=== PATIENT | male | born 1975 | race Asian ===

== ENCOUNTER 2019-02-23 09:47 | Day surgery (SDC) | payer OTHER ==
[2019-02-23] MEDS: CEFAZOLIN 2 GM/50 ML (PMX) 50 ML IVPB (07:00)
[~2019-02-23 09:47] MED LIST: DEXAMETHASONE 4 MG/ML 5 ML INJ; ONDANSETRON 4 MG INJ
[2019-02-23 11:15] LABS: ADD MAN DIFF? NO
[2019-02-23 11:17] LABS: WHITE BLOOD COUNT 4.4 10^3/ul (4.8-10.8)
[2019-02-23 11:17] LABS: BASOPHILS % 0.7 % (0.0-2.0); EOSINOPHILS # 0.2 10^3/ul (0.0-0.5); EOSINOPHILS % 3.7 % (0.0-7.0); HEMATOCRIT 43.9 % (42.0-52.0); HEMOGLOBIN 14.8 g/dl (14.0-18.0); LYMPHOCYTES # 1.4 10^3/ul (0.8-2.9); LYMPHOCYTES % 32.2 % (15.0-51.0); MEAN CORPUSCULAR HEMOGLOBIN 29.7 pg (29.0-33.0); MEAN CORPUSCULAR HGB CONC 33.7 g/dl (32.0-37.0); MEAN PLATELET VOLUME 9.5 fl (7.4-10.4); MONOCYTE # 0.4 10^3/ul (0.3-0.9); MONOCYTES % 8.3 % (0.0-11.0); NEUTROPHIL # 2.4 10^3/ul (1.6-7.5); NEUTROPHILS % 54.9 % (39.0-77.0); PLATELET COUNT 217 10^3/UL (140-415); RED BLOOD COUNT 4.99 10^6/ul (4.70-6.10); RED CELL DISTRIBUTION WIDTH 12.9 % (11.5-14.5)
[2019-02-23] MEDS: SOD CHLORIDE 0.9% 1,000 ML IV (11:18)
[2019-02-23 11:38] LABS: HOLD TRANSMISSIONS 1
[2019-02-23 11:40] LABS: ALANINE AMINOTRANSFERASE 22 IU/L (13-69); ALBUMIN 4.4 g/dl (3.3-4.9); ALKALINE PHOSPHATASE 66 IU/L (42-121); ANION GAP 6 (5-13); ASPARTATE AMINO TRANSFERASE 22 IU/L (15-46); BILIRUBIN,INDIRECT 0.5 mg/dl (0-1.1); BILIRUBIN,TOTAL 0.5 mg/dl (0.2-1.3); BLOOD UREA NITROGEN 18 mg/dl (7-20); CALCIUM 9.5 mg/dl (8.4-10.2); CARBON DIOXIDE 32 mmol/L (21-31); CHLORIDE 103 mmol/L (97-110); CREATININE 0.89 mg/dl (0.61-1.24); Estimated GFR > 60 mL/min (>60); GLUCOSE 89 mg/dl (70-220); POTASSIUM 4.2 mmol/L (3.5-5.1); SODIUM 141 mmol/L (135-144); TOTAL PROTEIN 8.4 g/dl (6.1-8.1)
[2019-02-23 11:49] LABS: INR 0.94; PROTIME 12.7 Sec (11.9-14.9)
[2019-02-23 11:50] LABS: PARTIAL THROMBOPLASTIN TIME 31.6 Sec (23.0-35.0)
[2019-02-23] MEDS ORDERED: POLYMYXIN/BACITRACIN 1L IRRIG (13:00)
[2019-02-23] MEDS ORDERED: ROCURONIUM 50 MG INJ (13:15)
[2019-02-23] MEDS ORDERED: PROPOFOL 20 ML (13:15)
[2019-02-23] MEDS ORDERED: LIDOCAINE 2% (SDV) 5 ML INJ (13:15)
[2019-02-23] MEDS ORDERED: CEFAZOLIN 1 GM INJ (13:23)
[2019-02-23] MEDS: BUPIVACAINE 0.25% (MPF) 30 ML INJ (13:51)
[2019-02-23] MEDS ORDERED: NEOSTIGMINE 3 MG/3 ML SYRINGE ×2 (14:03→14:12)
[2019-02-23] MEDS ORDERED: GLYCOPYRROLATE 0.4 MG INJ (14:12)
[2019-02-23] MEDS ORDERED: FENTAnyl 50 MCG/ML VIAL IV ×3 (14:30)
[2019-02-23] MEDS ORDERED: LABETALOL HCL 20MG INJ IV (14:30)
[2019-02-23] MEDS ORDERED: hydrALAzine 20 MG INJ IV (14:30)
[2019-02-23] MEDS ORDERED: ONDANSETRON 4 MG INJ IV (14:30)
[2019-02-23] MEDS ORDERED: ALBUTEROL 0.083% (NEB) 2.5 MG/3 ML AMP HHN (14:30)
[2019-02-23] MEDS ORDERED: EPHEDrine SULFATE 50 MG/5 ML SYG IV (14:30)
[2019-02-23] MEDS ORDERED: HYDROmorphONE 1 MG/5 ML IV SYRINGE IV ×2 (14:30)
[2019-02-23] MEDS ORDERED: KETOROLAC 30 MG INJ IV (14:30)
[2019-02-23] MEDS ORDERED: DIPHENHYDRAMINE 50 MG INJ IV (14:30)
[2019-02-23] MEDS ORDERED: MEPERIDINE 25 MG INJ IV (14:30)
[2019-02-23] MEDS ORDERED: OXYCODONE/ACETAMINOPHEN (5/325) TAB PO (14:30)
[2019-02-23] MEDS: HYDROmorphONE 1 MG/5 ML IV SYRINGE IV (15:09)
[2019-02-23] MEDS: HYDROCODONE/APAP (5/325) TAB PO (15:10)
[2019-02-23] MEDS: OXYCODONE/ACETAMINOPHEN (5/325) TAB PO (17:31)
== END 2019-02-23 19:00 | disposition home or self-care (01) ==
LOC: SDS 09:47
DX: K40.30 Unilateral inguinal hernia, with obstruction, without gangrene, not specified as recurrent (principal)
CPT/HCPCS: 49507; 71045; 80053; 85025; 85610; 85730; 93005